=== PATIENT | female | born 1985 | race Caucasian/White ===

== ENCOUNTER 2019-02-22 22:52 | Emergency (ER) | payer BC ==
[~2019-02-22] VITALS: Ht 154.9 cm; Wt 72.6 kg
--- OUTSIDE RECORDS SUMMARY | 2019-02-22 22:55 | XMS REPORT | Encounter Summary ---
Author Organization Unknown Address [address] [place] [address] Phone [phone] Reason for Visit Medical Complaint Instructions 1. Smoker stopping smoking: care instructions 2. Exacerbation of asthma albuterol sulfate HFA 90 mcg/actuation aerosol inhaler prednisone 20 mg tablet asthma attack: care instructions 3. Allergic rhinitis Xyzal 5 mg tablet fluticasone 50 mcg/actuation nasal spray,suspension allergies: care instructions Discussion Note: None recorded. Plan of Care Patient Instructions Take albuterol every 4-6 hoursfor at least the next 5 days. May continue bromfed as prescribed for cough. Please f/u with PCP in 1 week or seek care immediatelyif you are short of breath, have trouble breathing, or can't catch breath. Please avoid exercising untill you feel better, use albuterol inhaler befor exercising. Please follow up with PCP/UC/ER if symptoms get worse or no improvement in 3 days.Please follow up with PCP if recurrent cough/wheezing spells. Please read all the side effects of the medications, if you develop any side effects immediately stop the medication and please contact your PCP/UC/ER or [facility] or call 911. Pt verbalizes understanding and agrees to plan. Reminders Provider Appointments None recorded. Lab None recorded. Referral None recorded. Procedures None recorded. Surgeries None recorded. Imaging None recorded. Medications Name Start Date albuterol sulfate HFA 90 mcg/actuation aerosol inhaler Inhale 2 puffs every 4-6 hours by inhalation route as needed for wheezing. amoxicillin 875 mg-potassium clavulanate 125 mg tablet escitalopram 20 mg tablet fluticasone 50 mcg/actuation nasal spray,suspension Inhale 2 sprays into each nostril EVERY DAY Lexapro methylprednisolone 4 mg tablets in a dose pack prednisone 20 mg tablet Take 1 tablet twice a day by oral route with meals for 5 days. Xyzal 5 mg tablet Take 1 tablet every day by oral route for 30 days. Medications Administered None recorded. Vitals Height Weight BMI Blood Pressure 5 ft 1 in 155 lbs 29.3 112/70 Lab Results None recorded. Allergies Name Reaction Severity Onset NKDA Problems Name Status Onset Date Source Smoker Active Encounter Acute Sinusitis Active Encounter Upper Respiratory Infection Active Encounter Allergic Rhinitis Active Encounter Exacerbation of Asthma Active Encounter Expiratory Wheezing Active Encounter Procedures None recorded. Vaccine List Vaccine Type influenza, seasonal, injectable 05/03/2015 Tdap 08/03/2013 Social History Smoking Status Current Every Day Smoker Past Encounters 04/01/2016 Smoker; Exacerbation of Asthma; Allergic Rhinitis Leeanna Garcia, [facility]: [address] [facility], [place] [address], Ph. History of Present Illness [id number] Reported By: Patient HPI: Location: head/sinuses. Quality: productive cough, colored phlegm, nasal/sinus congestion, dry cough, wheezy cough. Duration: 3days. Severity: moderate. Onset/Timing: sudden. Context: no sick contacts, no foreign travel, non-smoker, allergies. Modifying factors: OTC medication. Associated Symptoms: no shortness of breath, no change in number of pillows needed to sleep at night, no sweats, no significant weight gain, no significant weight loss, no morning cough, no sore throat, no vomiting, no diarrhea, no rash, no nausea, yellow sputum, wheezing Notes: Pt also reports scratchy throat and itchy ears/nose. Review of Systems Basic Reported By: Patient Constitutional: Constitutional: no fever Eyes: Eyes: no eye complaints Bgxj-Qxyl-Smntt-Throat: Ears: no ear complaints. Nose: nose/sinus problems. Mouth/Throat: no sore throat, no bleeding gums, no mouth complaints, no teeth problems Cardiovascular: Cardiovascular: no chest pain, no shortness of breath, no known heart murmur Respiratory: Respiratory: no shortness of breath, cough, wheezing Gastrointestinal: Gastrointestinal: no abdominal pain, no vomiting / diarrhea Genitourinary: Genitourinary: no urinary complaints, no discharge Musculoskeletal: Musculoskeletal: no muscle aches, no muscle weakness, no arthralgias/joint pain, no back pain Skin: Skin: no abnormal / changing mole, no jaundice, no rashes Neurologic: Neurologic: no loss of consciousness, no weakness, no numbness, no seizures, no dizziness, headache Physical Exam Adult Basic, Adult Female Complete Constitutional: General Appearance: healthy-appearing, well-nourished, well-developed. Level of Distress: NAD. Ambulation: ambulating normally Psychiatric: Mental Status: active and alert. Orientation: to time, to place, to person Eyes: Lids and Conjunctivae: non-injected, no discharge, no pallor. Pupils: PERRLA. EOM: EOMI. Lens: clear. Sclerae: non-icteric Grq-Nuld-Dwttg-Throat: Ears: no lesions on external ear, no outer ear tenderness, EACs clear, TMs clear, middle ear fluid. Hearing: no hearing loss. Nose: no lesions on external nose, nares patent, no septal deviation, nasal passages clear, no sinus tenderness, nasal discharge--rhinorrhea, post nasal drip. Lips, Teeth, and Gums: no mouth or lip ulcers, no bleeding gums, normal dentition. Oropharynx: moist mucous membranes, no exudates, tonsils not enlarged, erythema Neck: Neck: supple. Lymph Nodes: no cervical LAD Lungs: Respiratory effort: no dyspnea, no tachypnea, no use of accessory muscles, no intercostal retractions. Auscultation: expiratory wheezing Cardiovascular: Heart Auscultation: RRR, no murmurs Neurologic: Gait and Station: normal gait
--- OUTSIDE RECORDS SUMMARY | 2019-02-22 22:55 | XMS REPORT | Encounter Summary ---
Author Organization Unknown Address [address] [place] [address] Phone [phone] Reason for Visit Medical Complaint Instructions 1. Streptococcal sore throat amoxicillin 875 mg tablet rapid strep group A, throat strep throat: care instructions 2. Sinusitis sinusitis: care instructions 3. Generalized aches and pains rapid flu (A+B) Discussion Note I provided /reviewed healthwise handout Plan of Care Patient Instructions Take prescription as prescribed and f/u with PCP if symptoms persist or worsens within 5-7 days. Reminders Provider Appointments None recorded. Lab Rapid Strep Group a, Throat 05/13/2017 [facility] Rapid Flu (A+B) 05/13/2017 [facility] Referral None recorded. Procedures None recorded. Surgeries None recorded. Imaging None recorded. Medications Name Start Date amoxicillin 875 mg tablet Take 1 tablet every 12 hours by oral route for 10 days. amoxicillin 875 mg-potassium clavulanate 125 mg tablet Take 1 tablet every 12 hours by oral route with meals for 10 days. azithromycin 250 mg tablet clindamycin 1 % topical gel APPLY AA BID escitalopram 10 mg tablet escitalopram 20 mg tablet TAKE 1 TABLET BY MOUTH ONCE DAILY fluticasone 50 mcg/actuation nasal spray,suspension Inhale 2 sprays into each nostril EVERY DAY levocetirizine 5 mg tablet Take 1 tablet every day by oral route for 30 days. Lexapro methylprednisolone 4 mg tablets in a dose pack paroxetine 40 mg tablet prednisone 20 mg tablet Take 1 tablet twice a day by oral route with meals for 5 days. ProAir HFA 90 mcg/actuation aerosol inhaler INHALE 2 PUFFS EVERY 6 HOURSAS NEEDED FOR WHEEZING OR DIFFICULTY BREATHING, UNTIL SYMPTOMS IMPROVE tramadol 37.5 mg-acetaminophen 325 mg tablet triamcinolone acetonide 0.1 % topical cream APPLY AA BID Medications Administered None recorded. Vitals Height Weight BMI Blood Pressure 5 ft 1 in 150 lbs 28.3 kg/m2 108/62 mm[Hg] Lab Results Date Name Specimen Result Interpretation Description Value Range Status Address Rapid Flu (A+B) Influenza a negative [facility]: [address] [facility] Influenza B negative [facility]: [address] [facility] Rapid Strep Group a, Throat Result positive [facility]: [address] [facility] Swab Location Left and Right tonsillar pillars [facility]: [address] [facility] Allergies Code Code System Name Reaction Severity Status Onset NKDA Problems Name Status Onset Date Source Smoker Active Encounter Acute Sinusitis Active Encounter Upper Respiratory Infection Active Encounter Allergic Rhinitis Active Encounter Exacerbation of Asthma Active Encounter Expiratory Wheezing Active Encounter Procedures None recorded. Vaccine List Vaccine Type influenza, seasonal, injectable 05/04/2015 Tdap 08/04/2013 Social History Smoking Status Current Every Day Smoker Past Encounters 05/13/2017 Streptococcal Sore Throat; Sinusitis; Generalized Aches and Pains [facility] Nichols: [address] , [place] [address], Ph. History of Present Illness [id number]-Ujhadibglg-Jssgdmt Reported By: Patient HPI: Location: head/sinuses. Quality: sore throat, nasal/sinus congestion. Duration: 2days. Severity: moderate. Onset/Timing: sudden. Context: no sick contacts, no foreign travel, non-smoker. Modifying factors: OTC medication. Associated Symptoms: no sputum production, no shortness of breath, no wheezing, no change in number of pillows needed to sleep at night, no sweats, no significant weight gain, no significant weight loss, no vomiting, no diarrhea, no rash, no nausea, no fever, no muscle aches, sore throat, headache; Bilateral ear muffled Review of Systems:ROS as noted in the HPI Review of Systems Basic Reported By: Patient Physical Exam Adult Basic, Adult Female Complete Reported By: Patient Constitutional: General Appearance: healthy-appearing, well-nourished, well-developed. Level of Distress: NAD. Ambulation: ambulating normally Psychiatric: Mental Status: active and alert. Orientation: to time, to place, to person Iev-Udoa-Ekmqq-Throat: Ears: no lesions on external ear, no outer ear tenderness, EACs clear, TMs clear. Hearing: no hearing loss. Nose: no lesions on external nose, nares patent, no septal deviation, nasal passages clear, sinus tenderness, post nasal drip. Lips, Teeth, and Gums: no mouth or lip ulcers, no bleeding gums, normal dentition. Oropharynx: moist mucous membranes, no exudates, erythema, tonsils enlarged 1+ Lungs: Respiratory effort: no dyspnea, no tachypnea, no use of accessory muscles, no intercostal retractions. Auscultation: breath sounds normal Cardiovascular: Heart Auscultation: RRR, no murmurs
--- OUTSIDE RECORDS SUMMARY | 2019-02-22 22:55 | XMS REPORT | Continuity of Care Document ---
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 Role Phone [employer] Information [facility] Unavailable Unavailable Problems Problem Status Onset Date Classification Date Reported Comments Source Streptococcal sore throat 05/13/2017 Diagnosis 05/13/2017 [facility] Sinusitis 05/13/2017 Diagnosis 05/13/2017 [facility] Generalized aches and pains 05/13/2017 Diagnosis 05/13/2017 [facility] Exacerbation of asthma 04/01/2016 Diagnosis 04/01/2016 [facility] Allergic rhinitis 04/01/2016 Diagnosis 04/01/2016 [facility] Smoker Problem 05/13/2017 [facility] Acute Sinusitis Problem 05/13/2017 [facility] Upper Respiratory Infection Problem 05/13/2017 [facility] Allergic Rhinitis Problem 05/13/2017 [facility] Exacerbation of Asthma Problem 05/13/2017 [facility] Expiratory Wheezing Problem 05/13/2017 [facility] Medications Medication Details Route Status Patient Instructions Ordering Provider Order Date Source Amoxicillin 875 MG Oral Tablet amoxicillin 875 mg tablet Take 1 tablet every 12 hours by oral route for 10 days. Active [facility] Amoxicillin 875 MG / Clavulanate 125 MG Oral Tablet amoxicillin 875 mg-potassium clavulanate 125 mg tablet Take 1 tablet every 12 hours by oral route with meals for 10 days. Active [facility] Azithromycin 250 MG Oral Tablet azithromycin 250 mg tablet Active [facility] Clindamycin 0.01 MG/MG Topical Gel clindamycin 1 % topical gel APPLY AA BID Active [facility] Escitalopram 10 MG Oral Tablet escitalopram 10 mg tablet Active [facility] Escitalopram 20 MG Oral Tablet escitalopram 20 mg tablet TAKE 1 TABLET BY MOUTH ONCE DAILY Active [facility] Fluticasone propionate 0.05 MG/ACTUAT Metered Dose Nasal [place] fluticasone 50 mcg/actuation nasal spray,suspension Inhale 2 sprays into each nostril EVERY DAY Active [facility] levocetirizine dihydrochloride 5 MG Oral Tablet levocetirizine 5 mg tablet Take 1 tablet every day by oral route for 30 days. Active [facility] Lexapro Lexapro Active [facility] methylprednisolone 4 mg tablets in a dose pack methylprednisolone 4 mg tablets in a dose pack Active [facility] Paroxetine Hydrochloride 40 MG Oral Tablet paroxetine 40 mg tablet Active [facility] Prednisone 20 MG Oral Tablet prednisone 20 mg tablet Take 1 tablet twice a day by oral route with meals for 5 days. Active [facility] 200 ACTUAT Albuterol 0.09 MG/ACTUAT Metered Dose Inhaler [ProAir] ProAir HFA 90 mcg/actuation aerosol inhaler INHALE 2 PUFFS EVERY 6 HOURSAS NEEDED FOR WHEEZING OR DIFFICULTY BREATHING, UNTIL SYMPTOMS IMPROVE Active [facility] Acetaminophen 325 MG / tramadol hydrochloride 37.5 MG Oral Tablet tramadol 37.5 mg-acetaminophen 325 mg tablet Active [facility] Triamcinolone Acetonide 1 MG/ML Topical Cream triamcinolone acetonide 0.1 % topical cream APPLY AA BID Active [facility] 200 ACTUAT Albuterol 0.09 MG/ACTUAT Metered Dose Inhaler albuterol sulfate HFA 90 mcg/actuation aerosol inhaler Inhale 2 puffs every 4-6 hours by inhalation route as needed for wheezing. Active [facility] levocetirizine dihydrochloride 5 MG Oral Tablet [Xyzal] Xyzal 5 mg tablet Take 1 tablet every day by oral route for 30 days. Active [facility] Allergies, Adverse Reactions, Alerts No Known Medication Allergies Immunizations Immunization Date Given Site Status Last Updated Comments Source influenza, seasonal, injectable 05/04/2015 completed [facility] Tdap 08/04/2013 completed [facility] Results Order Name Results Value Reference Range Date Interpretation Comments Source Influenza A negative 05/13/2017 [facility] Influenza B negative 05/13/2017 [facility] RESULT positive 05/13/2017 [facility] SWAB LOCATION Left and Right tonsillar pillars 05/13/2017 [facility] Pathology Reports No Data Provided for This Section Diagnostic Reports No Data Provided for This Section Consultation Notes No Data Provided for This Section Discharge Summaries No Data Provided for This Section History and Physicals No Data Provided for This Section Vital Signs Vital Sign Value Date Comments Source Diastolic (mm Hg) 62 05/13/2017 [facility] Height 61 05/13/2017 [facility] Systolic (mm Hg) 108 05/13/2017 [facility] Weight 150 05/13/2017 [facility] Diastolic (mm Hg) 70 04/01/2016 [facility] Height 61 04/01/2016 [facility] Systolic (mm Hg) 112 04/01/2016 [facility] Weight 155 04/01/2016 [facility] Encounters Location Location Details Encounter Type Encounter Number Reason For Visit Attending Provider ADM Date DC Date Status Source [place] - [facility] - [id number] Garcia, THERMOGRAPH OPERATOR[facility] [address] [facility] [place] [address], Ph. [phone] [id number] Leeanna Garcia 04/01/2016 [facility] [place] - [facility] - [id number] Leilani Mccray, THERMOGRAPH OPERATOR: [address] [place] [address], Ph. [id number] Leilani Mccray 05/13/2017 [facility] Procedures No Data Provided for This Section Assessment and Plan No Data Provided for This Section Plan of Care No Data Provided for This Section Social History Social History Date Source Smoking Status Current Every Day Smoker 09/06/2014 [facility] Family History No Data Provided for This Section Advance Directives No Data Provided for This Section Functional Status No Data Provided for This Section
[2019-02-22] MEDS ORDERED: KETOROLAC TROMETHAMINE 60 MG/2 ML VIAL IM ONE (23:15)
== END 2019-02-23 00:01 | disposition home or self-care (01) ==
LOC: ER 22:52
DX: R07.89 Other chest pain (principal); M94.0 Chondrocostal junction syndrome [Tietze]; F17.210 Nicotine dependence, cigarettes, uncomplicated
CPT/HCPCS: 93005; 99282; J1885